=== PATIENT | female | born 1950 | race Caucasian/White ===

== ENCOUNTER 2016-12-04 11:24 | Inpatient (IN) | payer MEDICARE ==
[~2016-12-04] VITALS: Ht 162.6 cm; Wt 48.4 kg
--- NOTE | ~2016-12-04 | DS ---
ADMIT: 12/04/2016 RM/LOC: [facility] MR#: [id number] [address] RAMO BRICEÑO [address] [place] [address] Discharge Summary SEX: F AGE: 66 : 1950 ADMISSION DATE: 12/04/2016 DISCHARGE DATE: 12/07/2016 I spent less than 30 minutes on discharge day activities. DISCHARGE DIAGNOSIS: 1. Left calcaneal fracture status post open reduction and internal fixation. 2. Multiple sclerosis. 3. Chronic/recurrent UTI (urinary tract infection). 4. Overactive bladder. 5. Constipation, resolved. CONSULTATIONS: Carlos Drake DPM with [facility]. PROCEDURES: Open reduction, internal fixation of left calcaneal fracture. REASON FOR ADMISSION: A 66-year-old female, previous fall at home. Found to have a calcaneal fracture. With her difficulty with pain and mobility, she was admitted for further evaluation and pain control and evaluation for definitive operative intervention. For complete details, please see H and P dictated on day of admission. HOSPITAL COURSE: At the time of admission, patient was placed in a Med/Surg bed, and she was evaluated by Dr. Carlos Drake with the [facility]. She was prepared for surgery and underwent open reduction and internal fixation of the left calcaneal fracture on 12/04/2016. She did well postop, did have some issues with pain control, a little bit of constipation. We got her on a bowel regimen and her pain was controlled. Overactive bladder symptoms were controlled. She had no fevers, chills, or dysuria that were consistent with a UTI. Symptoms were stable. She ate and drank without ADMIT: 12/04/2016 RM/LOC: 511 [facility] MR#: [id number] [address] RAMO BRICEÑO [address] [place] [address] Discharge Summary SEX: F AGE: 66 : 1950 difficulty. She was seen by PT and OT. Did have severe difficulty with mobilities and even some difficulty with ADLs, and so she thought, given her limited weightbearing status per Foot and Ankle as well as her MS, she would require some rehab at a local rehab facility. That was arranged by Social Work, and she was thought to be ready for discharge on 12/07/2016. DISCHARGE INSTRUCTIONS: Discharge medications are found on discharge medication list. Discharge activity is as tolerated per Physical Therapy with weightbearing restriction for foot and ankle. As mentioned, her diet is as tolerated, and she will have followup with both the [facility] and [facility] in the next 7-10 days. Christos Story MD/ sixto JOB #: [id number] CC: Carlos Drake DPM, Attending Physician Jarrod Engle MD, Family Physician
[~2016-12-04 11:24] MED LIST: AUBAGIO14 MG PO; BACLOFEN10 MG PO; CALTRATE-600 D600 MG PO; GARLIC1 EAC1 PO; MOTRIN IB200 MG PO; PROVIGIL100 MG PO; THERA1 EACH PO; TRIMPEX DPS100 MG PO; VESICARE10 MG PO; VITAMIN B-121000 MCG PO; [UNRECOGNIZED DRUG - OTHER] PO
--- NOTE | 2016-12-09 08:24 | HP ---
ADMIT: 12/04/2016 RM/LOC: 511 [facility] MR#: [id number] [address] RAMO BRICEÑO Donna [address] [place] [address] History and Physical SEX: F AGE: 66 : 1950 DATE OF SERVICE: CHIEF COMPLAINT: Left ankle fracture, calcaneal. HISTORY OF PRESENT ILLNESS: The patient is a pleasant 66-year-old female, who fell at home two weeks ago or so. Found ultimately to have a calcaneal fracture. Went to the OR last night for ORIF of her left calcaneal fracture. Continues to have some pain. Difficulty with mobility. Admitted for further pain control and PT assessment at this time. Continues to have a drain in. Otherwise, no nausea. No vomiting. No shortness of breath. Had been in her usual state of health. Has a history of chronic UTIs. Denies any dysuria recently. PAST MEDICAL HISTORY: 1. MS on chronic medications, Aubagio. 2. Chronic recurrent UTIs. 3. Overactive bladder. MEDICATIONS: She is on; 1. Modafinil. 2. Aubagio. 3. Baclofen. 4. Ibuprofen. 5. Trimethoprim. 6. Multivitamin. 7. VESIcare. FAMILY HISTORY: Significant for heart disease in both her parents. SOCIAL HISTORY: Lives by herself. Has a son in [place]. Nonsmoking. PHYSICAL EXAMINATION: VITAL SIGNS: Temperature 100.0, Pulse 92, respiratory rate 16, blood pressure 122/79, O2 saturation 98% on room air. GENERAL: She is alert and oriented x3. No acute distress. Pleasant. HEENT: Normocephalic, atraumatic. Pupils equal, round, and reactive to light and accommodation. Extraocular muscles intact. Dry mucous membranes. NECK: No lymphadenopathy. Soft, supple. Trachea midline. LUNGS: Clear to auscultation bilaterally. No wheezes, rales, or rhonchi. HEART: Regular rate and rhythm. No murmurs, rubs, or gallops. ABDOMEN: Soft, nontender, nondistended. Bowel sounds present. EXTREMITIES: No cyanosis, clubbing, or edema. Her left foot is in a dressing. Her toes have good color and cap refill. She has a drain in place with red blood. Otherwise, dressing clean, dry, and intact. LABORATORY AND X-RAY DATA: Her hemoglobin is 13.2, white count 7.9, platelets 338. ADMIT: 12/04/2016 RM/LOC: 511 [facility] MR#: [id number] [address] [place] [id number] KEYANNA RAMO K [address] [place] [address] History and Physical SEX: F AGE: 66 : 1950 ASSESSMENT: 1. Calcaneal fracture status post ORIF, postop day #1. 2. Multiple sclerosis. 3. Chronic recurrent urinary tract infection. PLAN: At this point in time, given her temperature, we will check a UA to make sure she does not have an ongoing recurrent UTI. We will get her pain under better control. I will have PT see and assess her. She will need some skilled rehab, I think long-term just to get back on her feet. I will help get this arranged and social work as well. The patient is agreeable to this plan. Otherwise, continue her home medications regarding her Aubagio. Jarrod Engle MD/ john JOB #: [id number] CC: Carlos Drake, Attending Physician Jarrod Engle, Family Physician
--- NOTE | 2016-12-11 07:13 | OR ---
ADMIT: 12/04/2016 RM/LOC: 511 [facility] MR#: [id number] [address] RAMO BRICEÑO [address] [place] [address] Operative/Delivery Room Report SEX: F AGE: 66 : 1950 SURGERY DATE: 12/04/2016 SURGEON: Carlos Drake DPM ASSEMBLER WET WASH: None. PREOPERATIVE DIAGNOSIS: Calcaneal fracture, left foot. POSTOPERATIVE DIAGNOSIS: Calcaneal fracture, left foot. PROCEDURE: Open reduction with internal fixation of left calcaneal fracture. PATHOLOGY: None. ANESTHESIA: General. HEMOSTASIS: Pneumatic thigh tourniquet inflated to 300 mmHg. ESTIMATED BLOOD LOSS: 25 mL. MATERIALS USED: One 7.0 MUC screw, and one 4.3 MUC screw from [employer] as well as PRO-STIM injectable bone graft. INJECTABLES: None. COMPLICATIONS: None. INDICATIONS FOR PROCEDURE: The patient has been recently admitted to the hospital as well as followed up in my office for a calcaneal fracture that happened approximately two weeks ago. After further imaging, a CT showed that there is significant depression of the subtalar joint and after having further discussion further with the patient and her niece regarding the risks, complications, and benefits of surgery. They have elected to undergo open reduction with internal fixation of the calcaneal fracture at this time. The procedure was explained to the patient in detail and all questions were answered to their satisfaction. All risks, complications, and benefits of the procedure were explained to the patient and she has shown that she understands these by signing the consent form has been placed in the chart. Her n.p.o. status has been confirmed. She has been medically cleared for surgery and no outcomes or guarantees have given or implied. PROCEDURE IN DETAIL: Under mild sedation, the patient was brought to the operating room and placed on the operating table in a supine position. A well- padded pneumatic thigh tourniquet was placed to the patient's left lower extremity and following general induction, the foot was scrubbed, prepped, and draped in the usual aseptic manner. An Esmarch bandage was used to exsanguinate the left lower extremity and the thigh tourniquet was inflated to 300 mmHg. Attention was then directed to the lateral aspect of the left rear foot where a 10 cm longitudinal incision around the subtalar joint was made ADMIT: 12/04/2016 RM/LOC: 511 [facility] MR#: [id number] [address] [address] RAMO BRICEÑO [address] [place] [address] Operative/Delivery Room Report SEX: F AGE: 66 : 1950 through skin and subcutaneous tissue with care being taken to preserve and retract all vital neurovascular structures with any bleeders being cauterized and ligated as deemed necessary. The incision was deepened appropriately to the level of the extensor retinaculum, where the ligaments and soft tissue were incised longitudinally to gain access to the subtalar joint and calcaneus. Appropriate blunt dissection was performed to retract and remove all soft tissue from the area. The fracture was readily identified and the posterior facet of the subtalar joint is noted to be severely depressed and not articulating with the talus. This area was then freed appropriately and reduced and placed in the area. By reducing this fracture fragment that led to a significant void found to the body of the calcaneus. Once appropriate reduction and temporary fixation was achieved using the guidewires for the screws that we placed later, PRO-STIM bone graft from [employer] was prepared appropriately and injected in the area. This will solidify as well as help stimulate bone growth in the area. Once we are satisfied with placement of bone graft, a 7.0 MUC screw was placed from the plantar posterior towards the subtalar joint fracture fragment. It is noted that all threads are not across the fracture site, but the concern at this time is holding the fracture fragment in place rather than compressing it against another piece of calcaneus and this screw is achieving that. A 4.3 MUC screw was then also placed posterior to anterior to help hold the fracture fragment in appropriate alignment. Once we were satisfied with the placement of the hardware, the area was flushed with copious amounts of normal sterile saline and the incision was closed in layers using 3-0 Vicryl, 4-0 Vicryl, and 3-0 nylon in a horizontal mattress suture technique. Prior to this, a ADILIA drain was placed to allow for appropriate drainage and reduce the chance of hematoma. The area was then dressed with Adaptic, 4 x 4 gauze, ABDs, cast padding, and a well- padded [id number] posterior splint was placed on the patient's left lower extremity. A thigh tourniquet was deflated and an immediate hyperemic response was noted to the left lower extremity. The patient tolerated the procedure and anesthesia well. She was transferred from the OR to the recovery room with vital signs stable. Neurovascular status intact to the left lower extremity. Following a brief period of postoperative monitoring, the patient will be admitted to the floor with all appropriate written and verbal instructions, which have been given to the patient, and have been placed in her chart at this time and followed by the primary. From [facility], it is also appreciated at this time. Carlos Drake DPM/ john JOB #: [id number] CC: Carlos Drake, Attending Physician Jarrod Engle, Family Physician
== END 2016-12-07 10:58 | DRG 505 ==
LOC: 5MS 13:12 → WOR 13:12 → 5MS 13:12
PROVIDERS: ADMIT Internal Medicine
PROC: 0QSM04Z Reposition Left Tarsal with Internal Fixation Device, Open Approach (ICD-10-PCS; principal; 2016-12-04)
DX: S92.002A Unspecified fracture of left calcaneus, initial encounter for closed fracture (principal); G35 Multiple sclerosis; W19.XXXA Unspecified fall, initial encounter; N32.81 Overactive bladder; F17.200 Nicotine dependence, unspecified, uncomplicated; K59.00 Constipation, unspecified